=== PATIENT | female | born 1970 | race Caucasian/White ===

== ENCOUNTER 2022-01-27 21:26 | Emergency (ER) | payer BC ==
[~2022-01-27] VITALS: Ht 167.6 cm; Wt 100.0 kg
[2022-01-27 21:36] VITALS: TEMP 98.7
[2022-01-27] MEDS ORDERED: NAPROSYN500 MG PO (23:07)
[2022-01-27] MEDS ORDERED: ROBAXIN 50500 MG/TAB PO (23:07)
[2022-01-27] MEDS ORDERED: PERCOCET 325 MG1 TA2 PO (23:07)
[2022-01-27 23:34] VITALS: BP 131/82; PULSE 74
== END 2022-01-27 23:34 | disposition home or self-care (01) ==
LOC: COL.ER 21:26
DX: M25.552 Pain in left hip (principal); Z87.39 Personal history of other diseases of the musculoskeletal system and connective tissue